=== PATIENT | female | born 1930 | race Caucasian/White ===

== ENCOUNTER 2017-01-20 10:55 | Observation (INO) | payer MEDICARE, OTHER ==
[2017-01-20] MEDS: Sodium Chloride 0.9% 1,000 ML IV SCH ×3 (11:53→15:35)
[2017-01-20] MEDS ORDERED: Ciprofloxacin in D5W 400 MG in Premix Bag 1 BAG IV ONE ×2 (12:34)
[2017-01-20] MEDS ORDERED: Ciprofloxacin in D5W 200 ML ONE (12:40)
[2017-01-20] MEDS ORDERED: Acetaminophen 500 MG Tab PO PRN (14:55)
[2017-01-20] MEDS ORDERED: Ondansetron 4 MG Tab.DIS PO PRN (14:55)
--- NOTE | 2017-01-20 15:01 | PCM.HP ---
H&P History of Present Illness - General Date of Service: 01/20/17 Admit Problem/Dx: Admission Diagnosis/Problem Admission Diagnosis/Problem Dehydration Source of Information: Patient History Limitations: Reports: No limitations - History of Present Illness Onset of Symptoms: Reports: other (3 days) Location: Reports: generalized Severity: moderate Improves with: Reports: None Worsens with: Reports: None Associated Symptoms: Reports: headaches, nausea/vomiting, weakness - Related Data Allergies/Adverse Reactions: Allergies Allergy/AdvReac Type Severity Reaction Status Date / Time No Known Allergies Allergy Verified 06/07/14 13:48 Home Medications: Home Meds Celecoxib [CeleBREX] 06/07/14 [History] Levothyroxine Sodium [Levothyroxine Sodium] 06/07/14 [History] atorvaSTATin Calcium [Lipitor] 06/07/14 [History] Past Medical History Other Cardiovascular History: on a moniter looking if irregular heartbeat Other Musculoskeletal History: L ankle fx Other Neuro History: lightheaded, trouble advancing feet, short steps, paresthesia B lower legs - Past Surgical History Other Female Surgeries/Procedures: bladder lifting surgery twice Social & Family History - Tobacco Use Second Hand Smoke Exposure: No - Recreational Drug Use Recreational Drug Use: No H&P Review of Systems - Review of Systems: Review Of Systems: See Below General: Reports: fever, chills, weakness, fatigue, decreased appetite, weight loss HEENT: Reports: no symptoms Pulmonary: Reports: no symptoms Cardiovascular: Reports: no symptoms Gastrointestinal: Reports: Diarrhea, Nausea, Vomiting Genitourinary: Reports: dysuria, burning, other (odor) Musculoskeletal: Reports: no symptoms Skin: Reports: no symptoms Psychiatric: Reports: no symptoms Exam - Exam Exam: See Below - Vital Signs Vital Signs: Last Vital Signs Temp 97.8 F 01/20/17 11:40 Pulse 88 01/20/17 14:05 Resp 18 01/20/17 14:05 BP 136/81 01/20/17 11:40 Pulse Ox 95 01/20/17 14:05 - Exam General: alert, oriented HEENT: Mucosa moist & pink, Nares patent Neck: supple, trachea midline Lungs: Clear to auscultation, Normal respiratory effort Cardiovascular: regular rate, regular rhythm Abdomen: normal bowel sounds, soft Back Exam: full range of motion Extremities: normal inspection Skin: warm, dry, intact Neurological: cranial nerves intact Neuro Extensive - Mental Status: alert, oriented x3, normal mood/affect, normal cognition - Patient Data Lab Results last 24 hrs: Laboratory Results - last 24 hr 01/20/17 01/20/17 01/20/17 Range/Units 11:05 11:05 11:05 WBC 25.2 H* D (4.0-11.0) K/uL RBC 4.65 (3.80-5.80) M/uL Hgb 14.6 (11.5-16.5) g/dL Hct 41.0 (37.0-47.0) % MCV 88 (76-96) fL MCH 31.4 (27.0-32.0) pg MCHC 35.6 H (31.0-35.0) g/dL RDW 15.2 (11.0-16.0) % Plt Count 89 L D (150-500) K/uL MPV 11.3 H (6.0-10.0) fL Neut % (Auto) Cash Register Repairer Lymph % (Auto) Cash Register Repairer [place] % (Auto) Cash Register Repairer Eos % (Auto) Cash Register Repairer Baso % (Auto) Cash Register Repairer Neut # Cash Register Repairer Lymph # Cash Register Repairer [place] # Cash Register Repairer Eos # Cash Register Repairer Baso # Cash Register Repairer Add Manual Diff Yes Neutrophils % (Manual) 88.0 H (45.0-70.0) % Band Neutrophils % 4.0 % Lymphocytes % (Manual) 5.0 L (20.0-40.0) % Monocytes % (Manual) 3.0 (3.0-10.0) % Platelet Estimate Decreased L Sodium 138 (136-145) mmol/L Potassium 4.4 (3.5-5.1) mmol/L Chloride 100 (98-107) mmol/L Carbon Dioxide 25.7 (21.0-32.0) mmol/L Anion Gap 16.7 H (5.0-15.0) mmol/L BUN 62 H* D (8-26) mg/dL Creatinine 3.04 H* D (0.55-1.02) mg/dL Est Cr Clr Drug Dosing TNP Estimated GFR (MDRD) 15 L (>60) MLS/MIN BUN/Creatinine Ratio 20.4 (6-25) Glucose 121 H (74-100) mg/dL Calcium 8.6 (8.5-10.1) mg/dL Total Bilirubin 1.1 H (0.0-1.0) mg/dL AST 44 H (15-37) U/L ALT 43 (12-78) U/L Alkaline Phosphatase 82 (46-116) U/L Total Protein 7.7 (6.4-8.2) g/dL Albumin 3.1 L (3.4-5.0) g/dL Globulin 4.6 H (2.2-4.2) g/dL Albumin/Globulin Ratio 0.7 L (0.8-2.0) Urine Color Yellow Urine Appearance Slightly cloudy (CLEAR) Urine pH 5.5 (5.0-8.0) Ur Specific [place] >= 1.030 (1.003-1.030) Urine Protein 100 H (NEGATIVE) mg/dL Urine Glucose (UA) Negative (NEGATIVE) mg/dL Urine Ketones Negative (NEGATIVE) mg/dL Urine Occult Blood Moderate H (NEGATIVE) Urine Nitrite Negative (NEGATIVE) Urine Bilirubin Negative (NEGATIVE) Urine Urobilinogen 0.2 (0.2-1.0) E.U./dL Ur Leukocyte Esterase Small H (NEGATIVE) Urine RBC 0-5 H /HPF Urine WBC 5-10 H /HPF Urine WBC Clumps Occasional /HPF Ur Squamous Epith Cells Few /HPF Urine Bacteria Rare /HPF Result Diagrams: 01/20/17 11:05 01/20/17 11:05 *Q Meaningful Use (ADM) - VTE *Q VTE Criteria *Q: - Stroke *Q Stroke Criteria *Q: - AMI *Q AMI Criteria *Q: - Problem List (1) KAYA (acute kidney injury) SNOMED Code(s): 88850979 ICD Code: N17.9 - ACUTE KIDNEY FAILURE, UNSPECIFIED Status: Acute Priority: High Current Visit: Yes (2) Dehydration SNOMED Code(s): 87176386 ICD Code: E86.0 - DEHYDRATION Status: Acute Priority: Medium Current Visit: Yes (3) UTI (urinary tract infection) SNOMED Code(s): 29687945 ICD Code: N39.0 - URINARY TRACT INFECTION, SITE NOT SPECIFIED Status: Acute Priority: Medium Current Visit: Yes Qualifiers: Urinary tract infection type: acute cystitis Hematuria presence: with hematuria Qualified Code(s): N30.01 - Acute cystitis with hematuria Problem List Initiated/Reviewed/Updated: Yes Orders Last 24hrs: Active Orders 24 hr Category Date Time Status Patient Status Manage Transfer [TRANSFER] Routine ADT 01/20/17 14:53 Active Vital Signs [RC] Q8H Care 01/20/17 14:57 Ordered Clear Liquid Diet [DIET] Diet 01/20/17 Dinner Ordered Acetaminophen [Tylenol Extra Strength] Med 01/20/17 14:55 Active 1,000 mg PO Q12H PRN Ondansetron [Zofran ODT] Med 01/20/17 14:55 Active 4 mg PO Q6H PRN Sodium Chloride 0.9% [Normal Saline] 1,000 ml Med 01/20/17 11:40 Active IV ASDIRECTED Sodium Chloride 0.9% [Normal Saline] 1,000 ml Med 01/20/17 15:00 Active IV ASDIRECTED Medication Orders Acetaminophen (Tylenol Extra Strength) 1,000 mg PO Q12H PRN PRN Reason: Pain Sodium Chloride (Normal Saline) 1,000 mls @ 500 mls/hr IV ASDIRECTED [facility] Last Admin: 01/20/17 14:29 Dose: 999 mls/hr Infusion: 01/20/17 14:28 Dose: 999 mls/hr Infusion: 01/20/17 14:07 Dose: 999 mls/hr Admin: 01/20/17 11:53 Dose: 500 mls/hr Sodium Chloride (Normal Saline) 1,000 mls @ 75 mls/hr IV ASDIRECTED [facility] Ondansetron HCl (Zofran Odt) 4 mg PO Q6H PRN PRN Reason: Nausea/Vomiting Assessment/Plan Comment:: IV hydration, po antibiotic, rest Anticipate a discharge within 48 hours
[2017-01-21] MEDS: Sodium Chloride 0.9% 1,000 ML IV SCH ×2 (05:09→18:05)
[2017-01-21] MEDS: VITAMIN D3 PO SCH (09:58)
[2017-01-21] MEDS: CELECOXIB 200 MG PO SCH (09:58)
[2017-01-21] MEDS: CALCIUM CARBONATE PO SCH (09:58)
[2017-01-21] MEDS: CIPROFLOXACIN 250 MG PO SCH ×2 (09:59→19:40)
[2017-01-21] MEDS: CHOLECALCIFEROL 2000 UNIT PO SCH (10:00)
--- NOTE | 2017-01-21 10:51 | PCM.PN ---
- General Info Date of Service: 01/21/17 Subjective Update: feeling better, still too weak to go home. No nausea or vomiting for the past 24 hours. Functional Status: Reports: pain controlled, tolerating diet - Review of Systems General: Reports: weakness, fatigue HEENT: Reports: no symptoms Pulmonary: Reports: wheezing Cardiovascular: Reports: no symptoms Gastrointestinal: Reports: No symptoms Musculoskeletal: Reports: no symptoms Skin: Reports: no symptoms Neurological: Reports: no symptoms Psychiatric: Reports: no symptoms - Patient Data Vitals - most recent: Last Vital Signs Temp 97.4 F 01/21/17 08:00 Pulse 90 01/21/17 08:00 Resp 14 01/21/17 08:00 BP 160/90 H 01/21/17 08:00 Pulse Ox 95 01/21/17 08:00 Weight - most recent: 170 lb I&O - last 24 hours: Intake & Output 01/20/17 01/21/17 01/21/17 22:59 06:59 14:59 Intake Total 2926 1058 Output Total 300 750 Balance 2626 308 Lab Results last 24 hrs: Laboratory Results - last 24 hr 01/20/17 01/20/17 01/20/17 Range/Units 11:05 11:05 11:05 WBC 25.2 H* D (4.0-11.0) K/uL RBC 4.65 (3.80-5.80) M/uL Hgb 14.6 (11.5-16.5) g/dL Hct 41.0 (37.0-47.0) % MCV 88 (76-96) fL MCH 31.4 (27.0-32.0) pg MCHC 35.6 H (31.0-35.0) g/dL RDW 15.2 (11.0-16.0) % Plt Count 89 L D (150-500) K/uL MPV 11.3 H (6.0-10.0) fL Neut % (Auto) Needle Loom Operator Lymph % (Auto) Needle Loom Operator [place] % (Auto) Needle Loom Operator Eos % (Auto) Needle Loom Operator Baso % (Auto) Needle Loom Operator Neut # Needle Loom Operator Lymph # Needle Loom Operator [place] # Needle Loom Operator Eos # Needle Loom Operator Baso # Needle Loom Operator Add Manual Diff Yes Neutrophils % (Manual) 88.0 H (45.0-70.0) % Band Neutrophils % 4.0 % Lymphocytes % (Manual) 5.0 L (20.0-40.0) % Monocytes % (Manual) 3.0 (3.0-10.0) % Platelet Estimate Decreased L Sodium 138 (136-145) mmol/L Potassium 4.4 (3.5-5.1) mmol/L Chloride 100 (98-107) mmol/L Carbon Dioxide 25.7 (21.0-32.0) mmol/L Anion Gap 16.7 H (5.0-15.0) mmol/L BUN 62 H* D (8-26) mg/dL Creatinine 3.04 H* D (0.55-1.02) mg/dL Est Cr Clr Drug Dosing TNP Estimated GFR (MDRD) 15 L (>60) MLS/MIN BUN/Creatinine Ratio 20.4 (6-25) Glucose 121 H (74-100) mg/dL Calcium 8.6 (8.5-10.1) mg/dL Total Bilirubin 1.1 H (0.0-1.0) mg/dL AST 44 H (15-37) U/L ALT 43 (12-78) U/L Alkaline Phosphatase 82 (46-116) U/L Total Protein 7.7 (6.4-8.2) g/dL Albumin 3.1 L (3.4-5.0) g/dL Globulin 4.6 H (2.2-4.2) g/dL Albumin/Globulin Ratio 0.7 L (0.8-2.0) Urine Color Yellow Urine Appearance Slightly cloudy (CLEAR) Urine pH 5.5 (5.0-8.0) Ur Specific [place] >= 1.030 (1.003-1.030) Urine Protein 100 H (NEGATIVE) mg/dL Urine Glucose (UA) Negative (NEGATIVE) mg/dL Urine Ketones Negative (NEGATIVE) mg/dL Urine Occult Blood Moderate H (NEGATIVE) Urine Nitrite Negative (NEGATIVE) Urine Bilirubin Negative (NEGATIVE) Urine Urobilinogen 0.2 (0.2-1.0) E.U./dL Ur Leukocyte Esterase Small H (NEGATIVE) Urine RBC 0-5 H /HPF Urine WBC 5-10 H /HPF Urine WBC Clumps Occasional /HPF Ur Squamous Epith Cells Few /HPF Urine Bacteria Rare /HPF 01/21/17 01/21/17 Range/Units 09:30 09:30 WBC 19.1 H D (4.0-11.0) K/uL RBC 4.02 (3.80-5.80) M/uL Hgb 12.4 (11.5-16.5) g/dL Hct 36.5 L (37.0-47.0) % MCV 91 (76-96) fL MCH 30.8 (27.0-32.0) pg MCHC 34.0 (31.0-35.0) g/dL RDW 15.3 (11.0-16.0) % Plt Count 75 L (150-500) K/uL MPV 11.1 H (6.0-10.0) fL Neut % (Auto) 89.4 H Lymph % (Auto) 5.2 L [place] % (Auto) 5.0 Eos % (Auto) 0.2 L Baso % (Auto) 0.2 Neut # 17.06 H Lymph # 0.99 L [place] # 0.96 H Eos # 0.03 L Baso # 0.04 Add Manual Diff Neutrophils % (Manual) (45.0-70.0) % Band Neutrophils % % Lymphocytes % (Manual) (20.0-40.0) % Monocytes % (Manual) (3.0-10.0) % Platelet Estimate Sodium 139 (136-145) mmol/L Potassium 3.9 (3.5-5.1) mmol/L Chloride 106 (98-107) mmol/L Carbon Dioxide 25.2 (21.0-32.0) mmol/L Anion Gap 11.7 (5.0-15.0) mmol/L BUN 43 H D (8-26) mg/dL Creatinine 1.91 H D (0.55-1.02) mg/dL Est Cr Clr Drug Dosing 18.14 Estimated GFR (MDRD) 25 L (>60) MLS/MIN BUN/Creatinine Ratio 22.5 (6-25) Glucose 110 H (74-100) mg/dL Calcium 7.8 L (8.5-10.1) mg/dL Total Bilirubin 0.9 (0.0-1.0) mg/dL AST 27 (15-37) U/L ALT 30 (12-78) U/L Alkaline Phosphatase 68 (46-116) U/L Total Protein 6.3 L (6.4-8.2) g/dL Albumin 2.4 L (3.4-5.0) g/dL Globulin 3.9 (2.2-4.2) g/dL Albumin/Globulin Ratio 0.6 L (0.8-2.0) Urine Color Urine Appearance (CLEAR) Urine pH (5.0-8.0) Ur Specific [place] (1.003-1.030) Urine Protein (NEGATIVE) mg/dL Urine Glucose (UA) (NEGATIVE) mg/dL Urine Ketones (NEGATIVE) mg/dL Urine Occult Blood (NEGATIVE) Urine Nitrite (NEGATIVE) Urine Bilirubin (NEGATIVE) Urine Urobilinogen (0.2-1.0) E.U./dL Ur Leukocyte Esterase (NEGATIVE) Urine RBC /HPF Urine WBC /HPF Urine WBC Clumps /HPF Ur Squamous Epith Cells /HPF Urine Bacteria /HPF Med Orders - Current: Current Medications Acetaminophen (Tylenol Extra Strength) 1,000 mg PO Q12H PRN PRN Reason: Pain Atorvastatin Calcium (Lipitor) 20 mg PO DAILY [facility] Last Admin: 01/21/17 09:59 Dose: Not Given Cholecalciferol (Vitamin D3) 2,000 unit PO DAILY [facility] Last Admin: 01/21/17 10:00 Dose: 2,000 unit Ciprofloxacin (Ciprofloxacin Hcl) 250 mg PO BID [facility] Stop: 01/27/17 20:01 Last Admin: 01/21/17 09:59 Dose: 250 mg Sodium Chloride (Normal Saline) 1,000 mls @ 75 mls/hr IV ASDIRECTED [facility] Last Admin: 01/21/17 05:09 Dose: 75 mls/hr Levothyroxine Sodium (Synthroid) 50 mcg PO ACBREAKFAST [facility] Last Admin: 01/21/17 06:34 Dose: 50 mcg Calcium Carbonate/Vitamin D3 600 Mg Softgel Ptom 1 each PO DAILY [facility] Last Admin: 01/21/17 09:58 Dose: 1 each Celecoxib (Celebrex) (200 Mg Cap Ptom) 0 mg PO DAILY [facility] Last Admin: 01/21/17 09:58 Dose: 200 mg Ondansetron HCl (Zofran Odt) 4 mg PO Q6H PRN PRN Reason: Nausea/Vomiting Discontinued Medications Ciprofloxacin/Dextrose 400 mg/ (Premix) 200 mls @ 200 mls/hr IV ONETIME ONE Stop: 01/20/17 13:33 Last Admin: 01/20/17 12:47 Dose: 200 mls/hr Sodium Chloride (Normal Saline) 1,000 mls @ 500 mls/hr IV ASDIRECTED [facility] Last Infusion: 01/20/17 15:35 Dose: Infused Ciprofloxacin/Dextrose (Cipro In D5w 400 Mg/200 Ml) Confirm Administered Dose 200 mls @ as directed .ROUTE .STK-MED ONE Stop: 01/20/17 12:41 Last Admin: 01/20/17 12:44 Dose: Not Given - Exam General: alert, oriented HEENT: Pupils equal, Pupils reactive, EOMI, Mucous membr. moist/pink Neck: supple Lungs: Normal respiratory effort, Wheezing Cardiovascular: regular rate, regular rhythm Abdomen: bowel sounds present, soft Back Exam: full range of motion Extremities: no edema Skin: warm, dry, intact Neurological: no new focal deficit Psy/Mental Status: alert, normal affect, normal mood - Problem List & Annotations (1) KAYA (acute kidney injury) SNOMED Code(s): 72045041 Code(s): N17.9 - ACUTE KIDNEY FAILURE, UNSPECIFIED Status: Acute Priority : High Current Visit: Yes (2) Dehydration SNOMED Code(s): 04068634 Code(s): E86.0 - DEHYDRATION Status: Acute Priority: Medium Current Visit: Yes (3) UTI (urinary tract infection) SNOMED Code(s): 01224018 Code(s): N39.0 - URINARY TRACT INFECTION, SITE NOT SPECIFIED Status: Acute Priority: Medium Current Visit: Yes Qualifiers: Urinary tract infection type: acute cystitis Hematuria presence: with hematuria Qualified Code(s): N30.01 - Acute cystitis with hematuria - Problem List Review Problem List Initiated/Reviewed/Updated: Yes - My Orders Last 24 Hours: My Active Orders 01/20/17 14:55 Acetaminophen [Tylenol Extra Strength] 1,000 mg PO Q12H PRN Ondansetron [Zofran ODT] 4 mg PO Q6H PRN 01/20/17 14:57 Vital Signs [RC] 00,04,08,12,16,20 01/20/17 15:00 Sodium Chloride 0.9% [Normal Saline] 1,000 ml IV ASDIRECTED 01/20/17 16:45 CULTURE MRSA SURVEY [RM] Routine 01/20/17 Dinner Clear Liquid Diet [DIET] 01/21/17 07:00 Levothyroxine [Synthroid] 50 mcg PO ACBREAKFAST 01/21/17 08:00 Calcium Carbonate/Vitamin D3 [Calcium 600 + Vit D Softgel] 1 each PO DAILY Celecoxib [CeleBREX] 0 mg PO DAILY Cholecalciferol (Vitamin D3) [Vitamin D3] 2,000 unit PO DAILY Ciprofloxacin [Ciprofloxacin HCl] 250 mg PO BID atorvaSTATin [Lipitor] 20 mg PO DAILY 01/21/17 Lunch Regular Diet [DIET] - Assessment Assessment:: weakness UTI Nausea and vomiting - Plan Plan:: IV hydration, po antibiotic, rest Anticipate a discharge within 48 hours- continue with this plan 01/21/2017
[2017-01-22] MEDS: Sodium Chloride 0.9% 1,000 ML IV SCH (07:33)
[2017-01-22] MEDS: CALCIUM CARBONATE PO SCH (08:40)
[2017-01-22] MEDS: CELECOXIB 200 MG PO SCH (08:40)
[2017-01-22] MEDS: VITAMIN D3 PO SCH (08:40)
[2017-01-22] MEDS: CIPROFLOXACIN 250 MG PO SCH (08:40)
[2017-01-22] MEDS: CHOLECALCIFEROL 2000 UNIT PO SCH (08:41)
--- NOTE | 2017-01-22 10:25 | PCM.DCSUM1 ---
Discharge Summary - Hospital Course Brief History: In for KAYA; UTI - Discharge Data Discharge Date: 01/22/17 Discharge Disposition: Home, Self-Care 01 Condition: Good - Discharge Diagnosis/Problem(s) (1) KAYA (acute kidney injury) SNOMED Code(s): 63217810 ICD Code: N17.9 - ACUTE KIDNEY FAILURE, UNSPECIFIED Status: Acute Priority: High Current Visit: Yes (2) Dehydration SNOMED Code(s): 98322706 ICD Code: E86.0 - DEHYDRATION Status: Acute Priority: Medium Current Visit: Yes (3) UTI (urinary tract infection) SNOMED Code(s): 86477413 ICD Code: N39.0 - URINARY TRACT INFECTION, SITE NOT SPECIFIED Status: Acute Priority: Medium Current Visit: Yes Qualifiers: Urinary tract infection type: acute cystitis Hematuria presence: with hematuria Qualified Code(s): N30.01 - Acute cystitis with hematuria - Patient Summary/Data Recommended Follow-up Testing/Procedures: To follow up with Dr. Jameson this week in clinic Hospital Course: Given IV fluid and cipro; doing well. Kidney's are improving. - Patient Instructions Diet: Usual Diet as Tolerated Activity: As Tolerated Driving: Do Not Drive Showering/Bathing: May Shower - Discharge Plan Home Medications: Home Meds Celecoxib [CeleBREX] 200 mg PO DAILY 06/07/14 [History] Levothyroxine Sodium [Levothyroxine Sodium] 50 mcg PO ACBREAKFAST 06/07/14 [ History] atorvaSTATin Calcium [Lipitor] 20 mg PO DAILY 06/07/14 [History] Calcium Carbonate/Vitamin D3 [Calcium 600 + Vit D Softgel] 1 each PO DAILY 01/20 [History] Cholecalciferol (Vitamin D3) [Vitamin D3] 2,000 unit PO DAILY 01/20/17 [History] Ciprofloxacin [Ciprofloxacin HCl] 250 mg PO BID 01/20/17 [History] Patient Handouts: Urinary Tract Infection, Adult, Ciprofloxacin tablets - Discharge Summary/Plan Comment DC Time >30 min.: No - General Info Date of Service: 01/22/17 Functional Status: Reports: pain controlled, tolerating diet, ambulating, urinating, incentive spirometry - Review of Systems General: Reports: no symptoms HEENT: Reports: no symptoms Pulmonary: Reports: shortness of breath. Denies: no symptoms Cardiovascular: Reports: no symptoms Gastrointestinal: Reports: No symptoms Genitourinary: Reports: no symptoms Musculoskeletal: Reports: no symptoms Skin: Reports: no symptoms Neurological: Reports: no symptoms Psychiatric: Reports: no symptoms - Patient Data Vitals - Most Recent: Last Vital Signs Temp 97.3 F 01/22/17 08:00 Pulse 90 01/22/17 08:00 Resp 16 01/22/17 08:00 BP 156/89 H 01/22/17 08:00 Pulse Ox 93 L 01/22/17 08:00 Weight - Most Recent: 170 lb I&O - Last 24 hours: Intake & Output 01/21/17 01/22/17 01/22/17 22:59 06:59 14:59 Intake Total 934 1176 Output Total 600 Balance 934 576 Lab Results - Last 24 hrs: Laboratory Results - last 24 hr 01/22/17 01/22/17 Range/Units 08:10 08:20 WBC 9.7 D (4.0-11.0) K/uL RBC 4.10 (3.80-5.80) M/uL Hgb 12.7 (11.5-16.5) g/dL Hct 37.3 (37.0-47.0) % MCV 91 (76-96) fL MCH 31.0 (27.0-32.0) pg MCHC 34.0 (31.0-35.0) g/dL RDW 15.3 (11.0-16.0) % Plt Count 79 L (150-500) K/uL MPV 11.2 H (6.0-10.0) fL Neut % (Auto) 76.3 H (45.0-70.0) % Lymph % (Auto) 10.4 L (20.0-40.0) % [place] % (Auto) 11.4 H (3.0-10.0) % Eos % (Auto) 1.0 (1.0-5.0) % Baso % (Auto) 0.9 H (0.0-0.5) % Neut # 7.43 (2.00-7.50) K/uL Lymph # 1.01 L (1.50-4.00) K/uL [place] # 1.11 H (0.20-0.80) K/uL Eos # 0.10 (0.04-0.40) K/uL Baso # 0.09 (0.02-0.10) K/uL Sodium 142 (136-145) mmol/L Potassium 3.5 (3.5-5.1) mmol/L Chloride 108 H (98-107) mmol/L Carbon Dioxide 25.3 (21.0-32.0) mmol/L Anion Gap 12.2 (5.0-15.0) mmol/L BUN 33 H D (8-26) mg/dL Creatinine 1.58 H (0.55-1.02) mg/dL Est Cr Clr Drug Dosing 21.92 mL/min Estimated GFR (MDRD) 31 L (>60) MLS/MIN BUN/Creatinine Ratio 20.9 (6-25) Glucose 98 (74-100) mg/dL Calcium 7.2 L (8.5-10.1) mg/dL Total Bilirubin 0.8 (0.0-1.0) mg/dL AST 23 (15-37) U/L ALT 28 (12-78) U/L Alkaline Phosphatase 65 (46-116) U/L Total Protein 5.8 L (6.4-8.2) g/dL Albumin 2.4 L (3.4-5.0) g/dL Globulin 3.4 (2.2-4.2) g/dL Albumin/Globulin Ratio 0.7 L (0.8-2.0) OTILIO Results - Last 24 hrs: Microbiology 01/20/17 16:45 MRSA Surveillance Culture - Final Nares, Unspecified NO MRSA ISOLATED Med Orders - Current: Current Medications Acetaminophen (Tylenol Extra Strength) 1,000 mg PO Q12H PRN PRN Reason: Pain Atorvastatin Calcium (Lipitor) 20 mg PO DAILY [facility] Last Admin: 01/22/17 08:41 Dose: Not Given Cholecalciferol (Vitamin D3) 2,000 unit PO DAILY [facility] Last Admin: 01/22/17 08:41 Dose: 2,000 unit Ciprofloxacin (Ciprofloxacin Hcl) 250 mg PO BID [facility] Stop: 01/27/17 20:01 Last Admin: 01/22/17 08:40 Dose: 250 mg Sodium Chloride (Normal Saline) 1,000 mls @ 75 mls/hr IV ASDIRECTED [facility] Last Admin: 01/22/17 07:33 Dose: 75 mls/hr Levothyroxine Sodium (Synthroid) 50 mcg PO ACBREAKFAST [facility] Last Admin: 01/22/17 07:29 Dose: 50 mcg Calcium Carbonate/Vitamin D3 600 Mg Softgel Ptom 1 each PO DAILY [facility] Last Admin: 01/22/17 08:40 Dose: 1 each Celecoxib (Celebrex) (200 Mg Cap Ptom) 0 mg PO DAILY [facility] Last Admin: 01/22/17 08:40 Dose: 200 mg Ondansetron HCl (Zofran Odt) 4 mg PO Q6H PRN PRN Reason: Nausea/Vomiting Discontinued Medications Ciprofloxacin/Dextrose 400 mg/ (Premix) 200 mls @ 200 mls/hr IV ONETIME ONE Stop: 01/20/17 13:33 Last Admin: 01/20/17 12:47 Dose: 200 mls/hr Sodium Chloride (Normal Saline) 1,000 mls @ 500 mls/hr IV ASDIRECTED [facility] Last Infusion: 01/20/17 15:35 Dose: Infused Ciprofloxacin/Dextrose (Cipro In D5w 400 Mg/200 Ml) Confirm Administered Dose 200 mls @ as directed .ROUTE .STK-MED ONE Stop: 01/20/17 12:41 Last Admin: 01/20/17 12:44 Dose: Not Given - Exam General: Reports: alert, oriented HEENT: Reports: EOMI Lungs: Reports: Clear to auscultation, Normal respiratory effort Cardiovascular: Reports: regular rate, regular rhythm Abdomen: Reports: bowel sounds present, soft, no tenderness Back Exam: Reports: full range of motion Extremities: Reports: no edema Skin: Reports: warm, dry Neurological: Reports: no new focal deficit Psy/Mental Status: Reports: alert, normal affect, normal mood *Q Meaningful Use (DIS) - VTE *Q VTE Criteria *Q: - Stroke *Q Stroke Criteria *Q: - AMI *Q AMI Criteria *Q:
[2017-01-22 13:45] VITALS: BP 150/78
== END 2017-01-22 12:30 | disposition home or self-care (01) ==
LOC: LB.CLINIC 10:55 → LB.IVTHER 10:55 → INTOOBSV 15:05 → LB.MS 15:05
PROVIDERS: ADMIT Nurse Practitioner Family; ATTEND Nurse Practitioner Family
DX: N17.9 Acute kidney failure, unspecified (principal); E86.0 Dehydration; N30.01 Acute cystitis with hematuria; Z79.899 Other long term (current) drug therapy; Z98.890 Other specified postprocedural states
CPT/HCPCS: 36415; 80053; 81001; 85025; 96360; 96361; 96365; 99217; 99218; 99224; A9270; G0378; J0744; J7040

== ENCOUNTER 2018-04-09 11:57 | Emergency (ER) | payer MEDICARE, OTHER ==
[2018-04-09] MEDS ORDERED: Meclizine 12.5 MG Tab PO ONE (12:15)
[2018-04-09] MEDS ORDERED: Sodium Chloride 0.9% 500 ML IV ONE (12:16)
[2018-04-09] MEDS ORDERED: Lisinopril 10 MG Tab PO ONE (13:20)
[2018-04-09] MEDS ORDERED: Sodium Chloride 0.9% 1,000 ML IV SCH (13:30)
[2018-04-09 14:30] VITALS: BP 155/60
--- NOTE | 2018-04-09 17:27 | CT ---
DATE OF SERVICE: 04/09/18 CLINICAL DATA: dizziness. UNENHANCED BRAIN CT: Multislice acquisition through the brain without IV contrast was performed. No priors. There is diffuse cerebral atrophy. There are periventricular lucencies bilaterally consistent with small vessel ischemic change. No masses or mass effect. No intracranial hemorrhage. No evidence of acute or subacute infarct. No osseous abnormalities. IMPRESSION: No acute intracranial abnormalities. [id number] [facility]
--- NOTE | 2018-04-09 22:14 | ER ---
DATE OF SERVICE: 04/09/2018 HISTORY OF PRESENT ILLNESS: An 87-year-old lady who comes in with her grandson with complaints of dizziness and lightheadedness that started about an hour ago or at 11:00 a.m. She tells me that she was out doing some yard work when she first noticed the symptoms. She has not been sick lately. She has not had any falls or injuries. The patient denies any loss of function of either arm or leg. She has not been nauseated. She states that she just has this dizziness and it seems to be constant once it started. The patient denies any problems with chest pain or shortness of breath. MEDICATIONS: Current medications are minimal. The patient has been taking levothyroxine and a multivitamin. OBJECTIVE: GENERAL APPEARANCE: The patient is awake and alert. No respiratory distress. VITAL SIGNS: Reviewed. Blood pressure initially is 190/68, pulse is 57, she is afebrile, O2 sats are 97% on room air. HEENT: Eyes, pupils equal, round, and reactive to light. EOMs are intact. Ears, TMs are normal. Nares are patent. Oral mucous membranes are dry. Tonsils not enlarged or injected. Pharynx not inflamed. NECK: Supple. LUNGS : Clear. CARDIAC: Heart sounds distinct. S1, S2 present. Regular rate. ABDOMEN: Soft and nontender. SKIN: Warm and dry. EXTREMITIES: There is no lower extremity edema noted. LAB AND X-RAY STUDIES: An EKG shows normal sinus rhythm with a slightly bradycardic rhythm involved with a rate of just under 60. Labs include a CBC and metabolic panel, they are largely unremarkable. Her creatinine level is 1.27, glucose is 116. UA is also obtained, showing a UTI. Head CT without contrast is negative. At this point, the patient was given a bolus of normal saline 500 mL and she was given Antivert 12.5 mg p.o. Within about 40 minutes, she states that she was definitely feeling better. She is not dizzy anymore. She just feels a little lightheaded. Blood pressure was continued to be monitored. We took orthostatic blood pressure readings initially which all remained fairly consistent in the 187 to 192 systolic and around 61 to 79 diastolic. At this point, the patient was given lisinopril 10 mg p.o. and we gave her a little bit more IV fluid setting the rate at 150 per hour. After 1 hour of this, her blood pressure had dropped. Most recent readings were 166/78 followed with 155/60. The patient states that she definitely feels better. She is just slightly lightheaded at this time. The patient tells me that she does use a walker at home to help with ambulation and her grandson lives with her. DIAGNOSES: 1. Hypertension without history of hypertension. 2. Dehydration. 3. Dizziness and lightheadedness, I do feel this is due to the patient's dehydration. 4. Urinary tract infection. TREATMENT PLAN: The patient has Bactrim or sulfa medication at home that she uses as needed for urinary tract infections, I advised her to start taking it. I will give her lisinopril 5 mg tablets to take 1 tablet a day starting tomorrow for her hypertension and I want the patient to increase her liquid intake by 2 or 3 large glasses a day or which she is currently doing. Activity should be as tolerated and with supervision, this is okay since her grandson lives with her, and I want the patient to follow up in a few days in the clinic for a recheck, sooner of course if her condition should get worse. CRS/MODL /[id number] RONNY
== END 2018-04-09 14:50 | disposition home or self-care (01) ==
LOC: LB.ED 11:57
DX: N39.0 Urinary tract infection, site not specified (principal); I10 Essential (primary) hypertension; E86.0 Dehydration
CPT/HCPCS: 36415; 70450; 80048; 81001; 85025; 87086; 87088; 87186; 93005; 99284; A9270; J7040

== ENCOUNTER 2018-07-13 10:52 | Emergency (ER) | payer MEDICARE, OTHER ==
[2018-07-13] MEDS ORDERED: Sodium Chloride 0.9% 10 ML Syringe FLUSH PRN (11:12)
[2018-07-13] MEDS ORDERED: cloNIDine 0.1 MG Tab PO ONE (11:12)
--- NOTE | 2018-07-13 11:14 | EDM.PDOC ---
ED HPI GENERAL MEDICAL PROBLEM - General Time Seen by Provider: 07/13/18 11:00 Source of Information: Reports: Patient History Limitations: Reports: No Limitations - History of Present Illness INITIAL COMMENTS - FREE TEXT/NARRATIVE: According to patient she claims that she was getting ready for [employer] sale tomorrow. She was opening and moving some boxes around the house at 9 Am today when she felt weakness in her right half of the body. She was able to weight bear and ambulate. No head ache, nausea, vomiting, blurry vision. No chest pain , shortness or breath or palpations.No other symptoms. She did come by private vehicle to emergency room. Pt has hypothyroidism and HTN, but has stopped her meds for a long time now. Her systolic pressure is 212/84mmhg. Onset: Today Onset Date: 07/13/18 Onset Time: 09:00 Severity: Mild Improves with: Reports: None Worsens with: Reports: None Associated Symptoms: Denies: Confusion, Chest Pain, Cough, Diaphoresis, Fever/ Chills, Headaches, Loss of Appetite, Nausea/Vomiting, Rash, Seizure, Shortness of Breath, Syncope, Weakness - Related Data Allergies Allergy/AdvReac Type Severity Reaction Status Date / Time No Known Allergies Allergy Verified 04/09/18 12:05 Home Meds: Home Meds NK [No Known Home Meds] 07/13/18 [History] Past Medical History Cardiovascular History: Reports: CAD, High Cholesterol Other Cardiovascular History: on a moniter looking if irregular heartbeat Genitourinary History: Reports: Urinary Incontinence H[employer] MAN History: Reports: Musculoskeletal History: Reports: Arthritis, Fracture Other Musculoskeletal History: L ankle fx Other Neuro History: lightheaded, trouble advancing feet, short steps, paresthesia B lower legs Endocrine/Metabolic History: Reports: Hypothyroidism - Past Surgical History HEENT Surgical History: Reports: Cataract Surgery Social & Family History - Family History Family Medical History: Noncontributory ED ROS GENERAL - Review of Systems Review Of Systems: See Below Constitutional: Reports: Weakness. Denies: Fever, Chills, Fatigue, Night Sweats , Diaphoresis HEENT: Denies: Rhinitis, Throat Pain, Throat Swelling, Vertigo, Vision Change Respiratory: Denies: Cough, Sputum Cardiovascular: Denies: Chest Pain, Lightheadedness GI/Abdominal: Denies: Abdominal Pain, Constipation, Diarrhea, Nausea, Vomiting : Denies: Dysuria, Flank Pain Musculoskeletal: Denies: Joint Pain, Joint Swelling, Muscle Pain, Muscle Stiffness Skin: Denies: Bruising, Pruritis, Rash Neurological: Reports: Weakness, Gait Disturbance. Denies: Dizziness, Headache , Numbness, Pre-Existing Deficit, Syncope, Tingling, Trouble Speaking, Difficulty Walking Psychiatric: Denies: Agitation, Anxiety Hematologic/Lymphatic: Denies: Anemia ED EXAM, GENERAL - Physical Exam Exam: See Below Exam Limited By: No Limitations General Appearance: Alert, WD/WN, No Apparent Distress Ears: Normal External Exam, Normal Canal, Hearing Grossly Normal, Normal TMs Ear Exam: Bilateral Ear: Auricle Normal, Canal Normal, TM normal Nose: Normal Inspection, Normal Mucosa, No Blood Throat/Mouth: Normal Inspection, Normal Lips, Normal Teeth, Normal Gums, Normal Oropharynx, Normal Voice, No Airway Compromise Head: Atraumatic, Normocephalic Neck: Normal Inspection, Supple, Non-Tender, Full Range of Motion Respiratory/Chest: No Respiratory Distress, Lungs Clear, Normal Breath Sounds, No Accessory Muscle Use, Chest Non-Tender Cardiovascular: Normal Peripheral Pulses, Regular Rate, Rhythm, No Edema, No Gallop, No JVD, No Murmur, No Rub Peripheral Pulses: 2+: Carotid (L), Carotid (R), Radial (L), Radial (R), Dorsalis Pedis (L), Dorsalis Pedis (R) GI/Abdominal: Normal Bowel Sounds, Soft, Non-Tender, No Organomegaly, No Distention, No Abnormal Bruit, No Mass Back Exam: Normal Inspection, Full Range of Motion, NT Extremities: Normal Inspection, Normal Range of Motion, Non-Tender, Normal Capillary Refill, No Pedal Edema Neurological: Alert, Oriented, CN II-XII Intact, Normal Cognition, Normal Gait, Normal Reflexes, No Motor/Sensory Deficits Skin Exam: Warm, Intact EKG INTERPRETATION EKG Date: 07/13/18 Rhythm: NSR Rate (Beats/Min): 57 [place]: Normal P-Wave: Present QRS: Normal ST-T: Normal Course - Vital Signs Text/Narrative:: Pt's clinical exam is normal, Other than elevated blood pressure, apparently from her not taking her medications. I do not see any neurological deficit on examination. Pt claims she feels fine. She did receive clonidine 0.1mg orally to get her pressure down. Repeat pressure is 177/74mmhg. Her CBC, CMP are normal. PT and INR are normal. Ct head is negative for bleed. EKG is normal and negative troponin. Clinical exam is normal. Pt might have had TIA, but has resolved by the time she is in the emergency room, or this could he hypertension related. I have stressed to patient not to stop her meds and to restart her lisinopril once she goes home. monitor Blood pressure closely. Followup in the clinic in 2 wks. Sooner if symptoms reoccur. Last Recorded V/S: Last Vital Signs Temp 98.4 F 07/13/18 10:55 Pulse 57 L 07/13/18 10:55 Resp 12 07/13/18 10:55 BP 203/85 H 07/13/18 10:55 Pulse Ox 99 07/13/18 10:55 - Orders/Labs/Meds Orders: Active Orders 24 hr Category Date Time Status EKG Documentation Completion [RC] ASDIRECTED Care 07/13/18 11:11 Active Head wo Cont [CT] Stat Exams 07/13/18 11:00 Ordered COMPREHENSIVE METABOLIC PN,CMP [CHEM] Stat Lab 07/13/18 10:59 Ordered TROPONIN I [CHEM] Stat Lab 07/13/18 11:11 Ordered Sodium Chloride 0.9% [Saline Flush] Med 07/13/18 11:12 Active 10 ml FLUSH ASDIRECTED PRN Peripheral IV Insertion Adult [OM.PC] Routine Oth 07/13/18 11:12 Ordered Medication Orders Sodium Chloride (Saline Flush) 10 ml FLUSH ASDIRECTED PRN PRN Reason: Keep Vein Open Labs: Laboratory Tests 07/13/18 07/13/18 Range/Units 11:20 11:20 WBC 5.5 (4.0-11.0) K/uL RBC 4.09 (3.80-5.80) M/uL Hgb 12.7 (11.5-16.5) g/dL Hct 37.8 (37.0-47.0) % MCV 92 (76-96) fL MCH 31.1 (27.0-32.0) pg MCHC 33.6 (31.0-35.0) g/dL RDW 13.1 (11.0-16.0) % Plt Count 217 (150-500) K/uL MPV 9.5 (6.0-10.0) fL Neut % (Auto) 51.1 (45.0-70.0) % Lymph % (Auto) 33.5 (20.0-40.0) % [place] % (Auto) 9.9 (3.0-10.0) % Eos % (Auto) 4.6 (1.0-5.0) % Baso % (Auto) 0.9 H (0.0-0.5) % Neut # (Auto) 2.80 (2.00-7.50) K/uL Lymph # (Auto) 1.83 (1.50-4.00) K/uL [place] # (Auto) 0.54 (0.20-0.80) K/uL Eos # (Auto) 0.25 (0.04-0.40) K/uL Baso # (Auto) 0.05 (0.02-0.10) K/uL PT 10.3 (9.0-11.5) sec INR 1.0 (1.0-3.5) APTT 32.8 (24.4-33.2) SECONDS Meds: Medications Generic Name Dose Route Start Last Admin Trade Name Freq PRN Reason Stop Dose Admin Sodium Chloride 10 ml 07/13/18 11:12 Saline Flush FLUSH ASDIRECTED PRN Keep Vein Open Discontinued Medications Generic Name Dose Route Start Last Admin Trade Name Freq PRN Reason Stop Dose Admin Clonidine HCl 0.1 mg 07/13/18 11:12 Catapres PO 07/13/18 11:13 ONETIME ONE Departure - Departure Time of Disposition: 12:15 Disposition: Home, Self-Care 01 Condition: Good Clinical Impression: Elevated blood pressure reading - Discharge Information Additional Instructions: Her CBC, CMP are normal. PT and INR are normal. Ct head is negative for bleed. EKG is normal and negative troponin. Clinical exam is normal. Pt might have had TIA, but has resolved by the time she is in the emergency room, or this could he hypertension related. I have stressed to patient not to stop her meds and to restart her lisinopril once she goes home. monitor Blood pressure closely. Followup in the clinic in 2 wks. Sooner if symptoms reoccur. - Problem List & Annotations (1) Elevated blood pressure reading SNOMED Code(s): 47679366 Code(s): R03.0 - ELEVATED BLOOD-PRESSURE READING, W/O DIAGNOSIS OF HTN Status: Acute Current Visit: Yes - Problem List Review Problem List Initiated/Reviewed/Updated: Yes - My Orders Last 24 Hours: My Active Orders 07/13/18 10:59 COMPREHENSIVE METABOLIC PN,CMP [CHEM] Stat 07/13/18 11:00 Head wo Cont [CT] Stat 07/13/18 11:11 EKG Documentation Completion [RC] ASDIRECTED TROPONIN I [CHEM] Stat 07/13/18 11:12 Sodium Chloride 0.9% [Saline Flush] 10 ml FLUSH ASDIRECTED PRN Peripheral IV Insertion Adult [OM.PC] Routine - Assessment/Plan Last 24 Hours: My Active Orders 07/13/18 10:59 COMPREHENSIVE METABOLIC PN,CMP [CHEM] Stat 07/13/18 11:00 Head wo Cont [CT] Stat 07/13/18 11:11 EKG Documentation Completion [RC] ASDIRECTED TROPONIN I [CHEM] Stat 07/13/18 11:12 Sodium Chloride 0.9% [Saline Flush] 10 ml FLUSH ASDIRECTED PRN Peripheral IV Insertion Adult [OM.PC] Routine Assessment:: Elevated Blood pressure- Poor compliance Possible TIA Plan: Her CBC, CMP are normal. PT and INR are normal. Ct head is negative for bleed. EKG is normal and negative troponin. Clinical exam is normal. Pt might have had TIA, but has resolved by the time she is in the emergency room, or this could he hypertension related. I have stressed to patient not to stop her meds and to restart her lisinopril once she goes home. monitor Blood pressure closely. Followup in the clinic in 2 wks. Sooner if symptoms reoccur.
[2018-07-13 12:45] VITALS: BP 211/96
--- NOTE | 2018-07-13 17:25 | CT ---
DATE OF SERVICE: 07/13/18 CLINICAL DATA: weakness UNENHANCED BRAIN CT: Multislice acquisition through the brain without IV contrast was performed. Comparison is made to a prior exam dated 04/09/18. There is diffuse cerebral atrophy. There are periventricular lucencies bilaterally consistent with small vessel ischemic change. No masses or mass effect. No intracranial hemorrhage. No changes from the prior exam. No acute intracranial abnormalities. [id number] [facility]
== END 2018-07-13 12:20 | disposition home or self-care (01) ==
LOC: LB.ED 10:52
DX: R03.0 Elevated blood-pressure reading, without diagnosis of hypertension (principal); E03.9 Hypothyroidism, unspecified; E78.00 Pure hypercholesterolemia, unspecified; I25.10 Atherosclerotic heart disease of native coronary artery without angina pectoris
CPT/HCPCS: 36415; 70450; 80053; 84484; 85025; 85610; 85730; 93005; 99285; A9270

== ENCOUNTER 2021-09-16 10:55 | Observation (INO) | payer MEDICARE, OTHER ==
[2021-09-16] MEDS ORDERED: Sodium Chloride 0.9% 500 ML IV ONE (12:34)
[2021-09-16] MEDS: Sodium Chloride 0.9% 1,000 ML IV SCH (14:00)
--- NOTE | 2021-09-16 14:52 | EDM.PDOC ---
ED HPI GENERAL MEDICAL PROBLEM - General Chief Complaint: Genitourinary Problem Stated Complaint: DIZZINESS Time Seen by Provider: 09/16/21 11:40 Source of Information: Reports: Patient, Family (son) History Limitations: Reports: No Limitations - History of Present Illness INITIAL COMMENTS - FREE TEXT/NARRATIVE: 89-year-old female present to the ED complaining of feeling dizzy. Patient states that she was getting dizzy only at night until today when it changed to feeling consistently dizzy (3 days). Patient said this is a gradual onset that gets worse when she is trying to sit up. She describes the sensation as spinning/weakness, and a "heavy head ". Positive for: Left-sided neck stiffness, dark stool. - Related Data Allergies Allergy/AdvReac Type Severity Reaction Status Date / Time No Known Allergies Allergy Verified 09/16/21 11:40 Home Meds: Home Meds Levothyroxine [Synthroid] 50 mcg PO ACBREAKFAST 09/16/21 [History] atorvaSTATin [Lipitor] 20 mg PO BEDTIME 09/16/21 [History] lisinopriL [Lisinopril] 10 mg PO DAILY 09/16/21 [History] Past Medical History Cardiovascular History: Reports: CAD, High Cholesterol, Hypertension Other Cardiovascular History: on a moniter looking if irregular heartbeat Genitourinary History: Reports: Urinary Incontinence [employer] EDITOR History: Reports: Musculoskeletal History: Reports: Arthritis, Fracture Other Musculoskeletal History: L ankle fx Other Neuro History: lightheaded, trouble advancing feet, short steps, paresthesia B lower legs Endocrine/Metabolic History: Reports: Hypothyroidism - Past Surgical History HEENT Surgical History: Reports: Cataract Surgery GI Surgical History: Reports: Appendectomy, Cholecystectomy Female Surgical History: Reports: Hysterectomy Other Female Surgeries/Procedures: bladder lifting surgery twice Social & Family History - Family History Family Medical History: No Pertinent Family History - Tobacco Use Tobacco Use Status *Q: Never Tobacco User Second Hand Smoke Exposure: No - Caffeine Use Caffeine Use: Reports: Coffee - Recreational Drug Use Recreational Drug Use: No ED ROS GENERAL - Review of Systems Review Of Systems: Comprehensive ROS is negative, except as noted in HPI. ED EXAM, DIZZINESS - Physical Exam Exam: See Below Text/Narrative:: 89-year-old female found lying supine in bay 3 of the ER. Patient was alert and oriented x3, GCS 456. Speaking full sentences. Skin pale, warm, dry. Exam Limited By: No Limitations General Appearance: Alert, WD/WN, No Apparent Distress Eye Exam: Bilateral Eye: EOMI, Normal Inspection, PERRL Nystagmus: No: worsens with head to L, worsens with head to R, reproducible, reversible, constant, short duration Ears: Normal External Exam, Normal Canal, Hearing Grossly Normal, Normal TMs Nose: Normal Inspection, Normal Mucosa, No Blood Throat/Mouth: Normal Inspection, Normal Lips, Normal Gums, Normal Oropharynx, Normal Voice, No Airway Compromise Head Exam: Atraumatic, Normocephalic Vertigo: reproducible (With rising from supine to sitting, patient presyncopal), short duration Neck: Normal Inspection, Supple, Non-Tender, Full Range of Motion Respiratory/Chest: No Respiratory Distress, Lungs Clear, Normal Breath Sounds, No Accessory Muscle Use, Chest Non-Tender Cardiovascular: Normal Peripheral Pulses, Regular Rate, Rhythm, No Edema, No Gal lop, No JVD, No Murmur, No Rub GI/Abdominal: Normal Bowel Sounds, Soft, Non-Tender, No Organomegaly, No Distention, No Abnormal Bruit, No Mass, Other (Body body Hydone crystal a lot more since now know you were not your standard to the she also talks she also talks to animals though so they try to get this patient then admitted documentation WBS: Low bit okay Mobius) Rectal (Female) Exam: Normal Exam, Heme - Stool, Hemorrhoids (External). No: Black Stool, Bloody Stool, Fecal Impaction Neurological: Alert, Normal Mood/Affect, Normal Dorsiflexion, CN II-XII Intact, Oriented x 3 Back Exam: Normal Inspection. No: CVA Tenderness (R), CVA Tenderness (L) Extremities: Normal Inspection, Normal Range of Motion, Non-Tender, No Pedal Edema, Normal Capillary Refill Psychiatric: Normal Affect, Normal Mood Skin Exam: Warm, Dry, Pallor. No: Rash #1 Interpretation EKG Date: 09/16/21 (Sinus bradycardia, T wave inversion lead I V4 V5 V6, no ST elevation.) Course - Vital Signs Last Recorded V/S: Last Vital Signs Temp 97.4 F 09/16/21 14:13 Pulse 66 09/16/21 14:13 Resp 16 09/16/21 14:13 BP 170/68 H 09/16/21 14:13 Pulse Ox 98 09/16/21 14:13 Orthostatic Blood Pressure [ 152/78 Standing] Orthostatic Blood Pressure [ 138/90 Sitting] Orthostatic Blood Pressure [ 168/78 Supine] - Orders/Labs/Meds Orders: Active Orders 24 hr Category Date Time Status Hemoccult [Fecal Occult Blood Collection] [] Care 09/16/21 11:46 Active ASDIRECTED Orthostatic Vital Signs [RC] ASDIRECTED Care 09/16/21 11:38 Active Medication Orders Cefazolin Sodium 1 gm/ Sodium (Chloride) 50 mls @ 200 mls/hr IV Q8H TAMI Non-Formulary Medication (Atorvastatin [Lipitor]) 20 mg PO BEDTIME TAMI Non-Formulary Medication (Levothyroxine [Synthroid]) 50 mcg PO ACBREAKFAST ATMI Non-Formulary Medication (Lisinopril [Lisinopril]) 10 mg PO DAILY TAMI Labs: Laboratory Tests 09/16/21 09/16/21 09/16/21 Range/Units 11:34 11:34 12:01 WBC 5.5 D (4.0-11.0) K/uL RBC 4.26 (3.80-5.80) M/uL Hgb 13.3 (11.5-16.5) g/dL Hct 40.1 (37.0-47.0) % MCV 94 (76-96) fL MCH 31.2 (27.0-32.0) pg MCHC 33.2 (31.0-35.0) g/dL RDW 13.7 (11.0-16.0) % Plt Count 202 (150-500) K/uL MPV 9.5 (6.0-10.0) fL Neut % (Auto) 63.0 (45.0-70.0) % Lymph % (Auto) 28.0 (20.0-40.0) % [place] % (Auto) 7.0 (3.0-10.0) % Eos % (Auto) 1.3 (1.0-5.0) % Baso % (Auto) 0.7 H (0.0-0.5) % Neut # (Auto) 3.49 (2.00-7.50) K/uL Lymph # (Auto) 1.55 (1.50-4.00) K/uL [place] # (Auto) 0.39 (0.20-0.80) K/uL Eos # (Auto) 0.07 (0.04-0.40) K/uL Baso # (Auto) 0.04 (0.02-0.10) K/uL Sodium 140 (136-145) mmol/L Potassium 4.5 (3.5-5.1) mmol/L Chloride 107 (98-107) mmol/L Carbon Dioxide 27.3 (21.0-32.0) mmol/L Anion Gap 10.2 (5.0-15.0) mmol/L BUN 18 (8-26) mg/dL Creatinine 1.19 H (0.55-1.02) mg/dL Est Cr Clr Drug Dosing 26.51 mL/min Estimated GFR (MDRD) 43 L (>60) MLS/MIN BUN/Creatinine Ratio 15.1 (6-25) Glucose 114 H (74-100) mg/dL Calcium 8.9 (8.5-10.1) mg/dL Total Bilirubin 0.9 (0.0-1.0) mg/dL AST 18 (15-37) U/L ALT 23 (12-78) U/L Alkaline Phosphatase 70 (46-116) U/L Troponin I < 0.017 (0.000-0.060) ng/mL Total Protein 7.3 (6.4-8.2) g/dL Albumin 3.5 (3.4-5.0) g/dL Globulin 3.8 (2.2-4.2) g/dL Albumin/Globulin Ratio 0.9 (0.8-2.0) Urine Color Yellow Urine Appearance Clear (CLEAR) Urine pH 5.5 (5.0-8.0) Ur Specific [place] 1.020 (1.003-1.030) Urine Protein Negative (NEGATIVE) mg/dL Urine Glucose (UA) Negative (NEGATIVE) mg/dL Urine Ketones Negative (NEGATIVE) mg/dL Urine Occult Blood Trace-lysed H (NEGATIVE) Urine Nitrite Positive H (NEGATIVE) Urine Bilirubin Negative (NEGATIVE) Urine Urobilinogen 0.2 (0.2-1.0) E.U./dL Ur Leukocyte Esterase Small H (NEGATIVE) Urine RBC 0-5 H /HPF Urine WBC 10-20 H /HPF Ur Squamous Epith Cells Few /HPF Urine Bacteria Moderate H /HPF Meds: Medications Generic Name Dose Route Start Last Admin Trade Name Freq PRN Reason Stop Dose Admin Cefazolin Sodium 1 gm/ Sodium 50 mls @ 200 mls/hr 09/16/21 16:00 Chloride IV Q8H TAMI Non-Formulary Medication 20 mg 09/16/21 20:00 Atorvastatin [Lipitor] PO BEDTIME TAMI Non-Formulary Medication 50 mcg 09/17/21 07:00 Levothyroxine [Synthroid] PO ACBREAKFAST TAMI Non-Formulary Medication 10 mg 09/17/21 08:00 Lisinopril [Lisinopril] PO DAILY TAMI Discontinued Medications Generic Name Dose Route Start Last Admin Trade Name Freq PRN Reason Stop Dose Admin Sodium Chloride 500 mls @ 500 mls/hr 09/16/21 12:34 09/16/21 12:34 Normal Saline IV 09/16/21 13:33 500 mls/hr .BOLUS ONE Administration Ceftazidime 1 gm/ Sodium 50 mls @ 100 mls/hr 09/16/21 20:00 Chloride IV Q12HR [facility] Departure - Departure Time of Disposition: 14:05 Disposition: Admitted As Inpatient 68 Condition: Good Clinical Impression: UTI, Urinary tract infectious disease UTI (urinary tract infection) Qualifiers: Urinary tract infection type: acute cystitis Hematuria presence: with hematuria Qualified Code(s): N30.01 - Acute cystitis with hematuria - Discharge Information *PRESCRIPTION DRUG MONITORING PROGRAM REVIEWED*: No *COPY OF PRESCRIPTION DRUG MONITORING REPORT IN PATIENT MARLENE: No Sepsis Event Note (ED) - Evaluation Sepsis Screening Result: No Definite Risk - Focused Exam Vital Signs: Vital Signs Temp Pulse Resp BP Pulse Ox 09/16/21 11:52 97.8 F 65 18 164/84 H 96 - My Orders Last 24 Hours: My Active Orders 09/16/21 11:38 Orthostatic Vital Signs [RC] ASDIRECTED 09/16/21 11:46 Hemoccult [Fecal Occult Blood Collection] [RC] ASDIRECTED - Assessment/Plan Last 24 Hours: My Active Orders 09/16/21 11:38 Orthostatic Vital Signs [RC] ASDIRECTED 09/16/21 11:46 Hemoccult [Fecal Occult Blood Collection] [RC] ASDIRECTED
[2021-09-16] MEDS: ceFAZolin 1 GM in Sodium Chloride 0.9% 50 ML IV SCH (16:30)
[2021-09-16] MEDS ORDERED: Ondansetron 4 MG/2 ML SDV IV PRN (17:11)
[2021-09-16] MEDS: atorvaSTATin 20 MG Tab ** OWN MED PO SCH (19:58)
[2021-09-16] MEDS: Lactobacillus Acidophilus/Lactobacillus Sporogenes (Probiotic) Tab PO SCH (20:20)
[2021-09-17] MEDS: ceFAZolin 1 GM in Sodium Chloride 0.9% 50 ML IV SCH ×4 (01:03→23:13)
[2021-09-17] MEDS: Levothyroxine 50 MCG Tab ** OWN MED PO SCH (08:16)
[2021-09-17] MEDS: Lactobacillus Acidophilus/Lactobacillus Sporogenes (Probiotic) Tab PO SCH (08:16)
[2021-09-17] MEDS: LISINOPRIL 10 MG PO SCH (08:16)
--- NOTE | 2021-09-17 12:33 | PCM.PN ---
- General Info Date of Service: 09/17/21 Admission Dx/Problem (Free Text): Urinary tract infection with orthostatic hypotension, weakness Subjective Update: Patient somewhat improved though still having dizziness with changes in position Functional Status: Reports: Tolerating Diet, Ambulating (With assistance), Urinating - Review of Systems General: Reports: No Symptoms HEENT: Reports: Other (Patient developed a new symptom today of a sense of pressure over her forehead constant) Pulmonary: Reports: No Symptoms Cardiovascular: Reports: No Symptoms Gastrointestinal: Reports: No Symptoms Genitourinary: Reports: No Symptoms Musculoskeletal: Reports: No Symptoms Skin: Reports: No Symptoms Neurological: Reports: Dizziness Psychiatric: Reports: No Symptoms - Patient Data Vitals - Most Recent: Last Vital Signs Temp 97.9 F 09/17/21 09:00 Pulse 58 L 09/17/21 09:00 Resp 16 09/17/21 09:00 BP 149/69 H 09/17/21 09:00 Pulse Ox 96 09/17/21 09:00 Orthostatic Blood Pressure [ 152/78 Standing] Orthostatic Blood Pressure [ 138/90 Sitting] Orthostatic Blood Pressure [ 168/78 Supine] Weight - Most Recent: 179 lb 2 oz Lab Results Last 24 Hours: Laboratory Results - last 24 hr 09/16/21 09/16/21 09/16/21 Range/Units 11:34 12:01 14:17 Sodium 140 (136-145) mmol/L Potassium 4.5 (3.5-5.1) mmol/L Chloride 107 (98-107) mmol/L Carbon Dioxide 27.3 (21.0-32.0) mmol/L Anion Gap 10.2 (5.0-15.0) mmol/L BUN 18 (8-26) mg/dL Creatinine 1.19 H (0.55-1.02) mg/dL Est Cr Clr Drug Dosing 26.51 mL/min Estimated GFR (MDRD) 43 L (>60) MLS/MIN BUN/Creatinine Ratio 15.1 (6-25) Glucose 114 H (74-100) mg/dL Calcium 8.9 (8.5-10.1) mg/dL Total Bilirubin 0.9 (0.0-1.0) mg/dL AST 18 (15-37) U/L ALT 23 (12-78) U/L Alkaline Phosphatase 70 (46-116) U/L Troponin I < 0.017 (0.000-0.060) ng/mL Total Protein 7.3 (6.4-8.2) g/dL Albumin 3.5 (3.4-5.0) g/dL Globulin 3.8 (2.2-4.2) g/dL Albumin/Globulin Ratio 0.9 (0.8-2.0) Urine RBC 0-5 H /HPF Urine WBC 10-20 H /HPF Ur Squamous Epith Cells Few /HPF Urine Bacteria Moderate H /HPF SARS-CoV-2 RNA (JOYCELYN) Negative (NEGATIVE) Med Orders - Current: Current Medications Atorvastatin Calcium (Atorvastatin 20 Mg Tab Own Med ) 20 mg PO BEDTIME [facility] Last Admin: 09/16/21 19:58 Dose: 20 mg Documented by: Cefazolin Sodium 1 gm/ Sodium (Chloride) 50 mls @ 200 mls/hr IV Q8H [facility] Last Admin: 09/17/21 08:17 Dose: 200 mls/hr Documented by: Sodium Chloride (Normal Saline) 1,000 mls @ 100 mls/hr IV ASDIRECTED [facility] Last Admin: 09/16/21 14:00 Dose: 100 mls/hr Documented by: Lactobacillus Acidophilus (Lactobacillus Acidophilus/Lactobacillus Sporogenes (Probiotic) Tab) 1 tab PO DAILY [facility] Last Admin: 09/17/21 08:16 Dose: 1 tab Documented by: Levothyroxine Sodium (Levothyroxine 50 Mcg Tab Own Med ) 50 mcg PO ACBREAKFAST [facility] Last Admin: 09/17/21 08:16 Dose: 50 mcg Documented by: Lisinopril (Lisinopril 10 Mg Tab Own Med ) 10 mg PO DAILY [facility] Last Admin: 09/17/21 08:16 Dose: 10 mg Documented by: Ondansetron HCl (Ondansetron 4 Mg/2 Ml Sdv) 4 mg IV Q6H PRN PRN Reason: Nausea/Vomiting Discontinued Medications Sodium Chloride (Normal Saline) 500 mls @ 500 mls/hr IV .BOLUS ONE Stop: 09/16/21 13:33 Last Admin: 09/16/21 12:34 Dose: 500 mls/hr Documented by: Ceftazidime 1 gm/ Sodium (Chloride) 50 mls @ 100 mls/hr IV Q12HR TAMI - Exam General: Alert, Oriented HEENT: Pupils Equal, Pupils Reactive, EOMI, Mucous Membr. Moist/[place] Neck: Supple Lungs: Clear to Auscultation, Normal Respiratory Effort Cardiovascular: Regular Rate, Regular Rhythm GI/Abdominal Exam: Normal Bowel Sounds, Soft, Non-Tender, No Organomegaly, No Distention, No Abnormal Bruit, No Mass, Pelvis Stable (Female) Exam: Deferred Back Exam: No: CVA Tenderness (R), CVA Tenderness (L) Extremities: Normal Inspection, Normal Range of Motion, Non-Tender, No Pedal Edema, Normal Capillary Refill Skin: Warm, Dry, Intact Neurological: Normal Speech, Normal Tone, Strength Equal Bilateral Psy/Mental Status: Alert, Normal Affect, Normal Mood Physical Findings Comments:: Skin vitals have improved patient was originally slightly pallor yesterday and today is pink warm and dry. Appears to be feeling better. - Patient Data Lab Results Last 24 hrs: Laboratory Results - last 24 hr 09/16/21 09/16/21 09/16/21 Range/Units 11:34 12:01 14:17 Sodium 140 (136-145) mmol/L Potassium 4.5 (3.5-5.1) mmol/L Chloride 107 (98-107) mmol/L Carbon Dioxide 27.3 (21.0-32.0) mmol/L Anion Gap 10.2 (5.0-15.0) mmol/L BUN 18 (8-26) mg/dL Creatinine 1.19 H (0.55-1.02) mg/dL Est Cr Clr Drug Dosing 26.51 mL/min Estimated GFR (MDRD) 43 L (>60) MLS/MIN BUN/Creatinine Ratio 15.1 (6-25) Glucose 114 H (74-100) mg/dL Calcium 8.9 (8.5-10.1) mg/dL Total Bilirubin 0.9 (0.0-1.0) mg/dL AST 18 (15-37) U/L ALT 23 (12-78) U/L Alkaline Phosphatase 70 (46-116) U/L Troponin I < 0.017 (0.000-0.060) ng/mL Total Protein 7.3 (6.4-8.2) g/dL Albumin 3.5 (3.4-5.0) g/dL Globulin 3.8 (2.2-4.2) g/dL Albumin/Globulin Ratio 0.9 (0.8-2.0) Urine RBC 0-5 H /HPF Urine WBC 10-20 H /HPF Ur Squamous Epith Cells Few /HPF Urine Bacteria Moderate H /HPF SARS-CoV-2 RNA (JOYCELYN) Negative (NEGATIVE) Result Diagrams: 09/16/21 11:34 09/16/21 11:34 Sepsis Event Note - Evaluation Sepsis Screening Result: No Definite Risk - Focused Exam Vital Signs: Vital Signs Temp Pulse Resp BP BP Pulse Ox 09/17/21 09:00 97.9 F 58 L 16 149/69 H 96 09/17/21 08:16 149/69 H 09/17/21 05:00 97 F 62 16 144/82 H 97 09/17/21 01:00 98 F 99 16 125/70 97 - Problem List Review Problem List Initiated/Reviewed/Updated: Yes - My Orders Last 24 Hours: My Active Orders 09/16/21 11:38 Orthostatic Vital Signs [RC] ASDIRECTED 09/16/21 11:46 Hemoccult [Fecal Occult Blood Collection] [RC] ASDIRECTED 09/16/21 13:36 Admission Status [Patient Status] [ADT] Routine 09/16/21 14:19 CULTURE MRSA SURVEY [RM] Routine 09/16/21 15:23 CULTURE URINE [RM] Routine 09/16/21 16:00 ceFAZolin [Ancef] 1 gm Sodium Chloride 0.9% [Normal Saline AdvBag] 50 ml IV Q8H 09/16/21 Dinner Regular Diet [DIET] 09/16/21 17:11 Oxygen Therapy [RC] PRN VTE/DVT Education [RC] Per Unit Routine Vital Signs [RC] Q4H Ondansetron [Zofran] 4 mg IV Q6H PRN 09/16/21 17:12 Antiembolic Hose [OM.PC] Per Unit Routine 09/16/21 17:15 Sodium Chloride 0.9% [Normal Saline] 1,000 ml IV ASDIRECTED 09/16/21 17:56 Resuscitation Status Routine 09/16/21 20:00 Acidophilus/Lactobac Spor [Acidolphilus Extra Strength] 1 tab PO DAILY atorvaSTATin [Lipitor] 20 mg PO BEDTIME 09/17/21 07:00 Levothyroxine [Synthroid] 50 mcg PO ACBREAKFAST 09/17/21 08:00 lisinopriL [Prinivil] 10 mg PO DAILY - Assessment Assessment:: 1. Urinary tract infection 2. Orthostatic dizziness - Plan Plan:: Address urinary tract infection with continued IV cefazolin. Continue broad- spectrum antibiotic until urine cultures return at which time we can switch to a more targeted antibiotic, and possibly switch to p.o. Continue to keep patient hydrated with normal saline, and treat urinary tract infection believe this will help improve patient's orthostatic dizziness.
[2021-09-17] MEDS ORDERED: ceFAZolin 1 GM Vial ONE (17:08)
[2021-09-17] MEDS: Sodium Chloride 0.9% 1,000 ML IV SCH (17:15)
[2021-09-17] MEDS: atorvaSTATin 20 MG Tab ** OWN MED PO SCH (19:27)
[2021-09-18] MEDS: Levothyroxine 50 MCG Tab ** OWN MED PO SCH (06:05)
[2021-09-18] MEDS ORDERED: ceFAZolin 1 GM Vial ONE ×2 (07:06→15:51)
[2021-09-18] MEDS: Lactobacillus Acidophilus/Lactobacillus Sporogenes (Probiotic) Tab PO SCH (07:13)
[2021-09-18] MEDS: ceFAZolin 1 GM in Sodium Chloride 0.9% 50 ML IV SCH ×3 (07:14→23:39)
[2021-09-18] MEDS: LISINOPRIL 10 MG PO SCH (07:14)
[2021-09-18] MEDS: Sodium Chloride 0.9% 1,000 ML IV SCH ×2 (07:15→20:52)
--- NOTE | 2021-09-18 11:37 | PN ---
DATE OF VISIT: 09/18/2021 SUBJECTIVE: Ira is feeling much better today. Her dizziness has resolved. She does complain of some constipation and she has not had any bowel movement for the past 3 days. She is not on anything, any laxatives or stool softeners. She is on cefazolin for her UTI. Repeat UA shows that she still has a significant wbc's in her urine with leukocyte esterase. She is negative for nitrites, however. There are a few bacteria. The culture is pending at the time of this dictation with our main concern being to identify the organism and sensitivities in light of the fact that she did not respond well to Cipro or Bactrim as an outpatient. She does state that she feels much better that her dizziness has resolved. OBJECTIVE: CHEST: Clear. CARDIAC: Regular rate without murmur. ABDOMEN: Soft. Nontender. She has no CVA tenderness. VITAL SIGNS: Stable. Her blood pressure is 150/73 with a heart rate of 68. She is afebrile. IMPRESSION: Improved with regard to her dizziness and no clinical signs of urosepsis. PLAN: We will await her urine culture and sensitivity and most likely end up sending her home on oral Keflex. She understands and agrees with this plan. MARK/MARCI /[id number]
[2021-09-18] MEDS: atorvaSTATin 20 MG Tab ** OWN MED PO SCH (20:00)
[2021-09-19] MEDS: Levothyroxine 50 MCG Tab ** OWN MED PO SCH (06:13)
[2021-09-19] MEDS ORDERED: ceFAZolin 1 GM Vial ONE (07:24)
[2021-09-19] MEDS: Lactobacillus Acidophilus/Lactobacillus Sporogenes (Probiotic) Tab PO SCH (07:59)
[2021-09-19] MEDS: ceFAZolin 1 GM in Sodium Chloride 0.9% 50 ML IV SCH (07:59)
[2021-09-19] MEDS: LISINOPRIL 10 MG PO SCH (07:59)
[2021-09-19 08:06] VITALS: BP 179/78
[2021-09-19 08:36] VITALS: PULSE 65
--- NOTE | 2021-09-19 09:26 | PN ---
DATE OF VISIT: 09/19/2021 SUBJECTIVE: Ira continues to feel well. She did have a good bowel movement this morning and this has helped her considerably. The results of her urine culture and sensitivity are not back yet, although she remains afebrile and has no urinary symptoms. She denies any back pain or abdominal pain at this time. IMPRESSION: Dizziness, resolved. Feels well. Awaiting results of urine culture and sensitivity, so we can decide on what oral antibiotics to send her home on. She understands and agrees with this plan. I anticipate she should be able to go home later on today. MARK/MARCI /[id number]
[2021-09-19] MEDS ORDERED: Cephalexin 250 MG Cap ONE (11:41)
--- NOTE | 2021-09-19 12:11 | DISCH ---
ADMISSION DIAGNOSIS: Urinary tract infection with dizziness. DISCHARGE DIAGNOSIS: Urinary tract infection secondary to Escherichia coli with dizziness, resolved. HOSPITAL COURSE: This 89-year-old woman was admitted by Ochoa Ang after coming to the emergency room with complaints of dizziness for 3 days prior to admission. Most of her dizziness seemed to be posturally-related and was precipitated by sitting up, etc. She described some vague heavy sensation across her forehead, but this resolved overnight. She had at least 2 prior courses of antibiotics (Cipro and Bactrim), recently, for lower urinary tract infection, yet she still had urinary-type symptoms, including increased frequency and dysuria. On physical examination, she had 30 mm drop in her systolic pressure indicating some significant orthostatic changes. Her urinalysis did have nitrites and leukocyte esterase with 10 to 20 wbc's and moderate bacteria, in spite of her recently completing a course of antibiotics. It was felt that she may well have been experiencing some dehydration and urinary sepsis. Because of this, she was admitted, treated with IV cefazolin, and gently hydrated overnight. Gradually over the ensuing 3 days, her dizziness resolved. She did complain of some constipation, but after some MiraLAX and prune juice, this was resolved. She remained afebrile and stable in terms of her hemodynamics. Her weakness and hesitancy to ambulate because the dizziness resolved gradually over the next 1 to 2 days. By the time of discharge, she was entirely asymptomatic and back to baseline. We did obtain a urine culture on admission which showed 50,000 colonies of E. coli and it was sensitive to cefazolin. It was therefore elected to discharge her on Keflex orally 250 mg p.o. b.i.d. x5 more days and to follow up with her primary care physician. Surely, if she has recurrence of her urinary symptoms or the dizziness, fever, chills, or back pain, she should be seen again, but otherwise she should follow up with her physician. All questions were answered. She understands and agrees with this plan. MISTY /[id number] RONNY
== END 2021-09-19 13:06 | disposition home or self-care (01) ==
LOC: LB.ED 10:55 → LB.MS 13:36
PROVIDERS: ADMIT Physician Assistant; ATTEND Physician Assistant
DX: N39.0 Urinary tract infection, site not specified (principal); B96.20 Unspecified Escherichia coli [E. coli] as the cause of diseases classified elsewhere; R42 Dizziness and giddiness; I25.10 Atherosclerotic heart disease of native coronary artery without angina pectoris; E78.00 Pure hypercholesterolemia, unspecified; I10 Essential (primary) hypertension; E03.9 Hypothyroidism, unspecified; Z79.890 Hormone replacement therapy; Z79.899 Other long term (current) drug therapy; Z90.49 Acquired absence of other specified parts of digestive tract; Z98.890 Other specified postprocedural states
CPT/HCPCS: 36415; 80053; 81001; 84484; 85025; 87086; 87088; 87186; 93005; 96374; 96376; 99285-25; A9270-GY; G0378; J0690; J7030; J7040; U0002